=== PATIENT | male | born 2000 | race Caucasian/White ===

== ENCOUNTER 2021-04-27 23:41 | Emergency (ER) | payer OTHER, SELFPAY ==
[2021-04-27 23:51] VITALS: BP 123/72; PULSE 55; RESP 20; TEMP 36.6; O2SAT 96
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
--- NOTE | 2021-04-28 00:07 | ECG_ITS ---
Measurements Intervals [place] Rate: 51 P: 63 DE: 150 QRS: 60 QRSD: 89 T: 28 QT: 395 QTc: 367 Interpretive Statements SINUS BRADYCARDIA POSSIBLE LEFT ATRIAL ENLARGEMENT INCOMPLETE RIGHT BUNDLE BRANCH BLOCK BASELINE WANDER- II, III, V3-V6 BORDERLINE ECG Electronically Signed On 04-28-2021 7:04:35 CDT by Jesus Rodas D.O.
[2021-04-28 00:24] LABS: Add Urine Microscopic? YES; Appearance Urine Clear (Clear); Bacteria Urine Trace /hpf; Bilirubin Urine Negative (Negative); Blood Urine Negative (Negative); Color Urine Yellow (Yellow); Glucose Urine UA Negative (Negative); Ketones Urine Negative (Negative); Leukocyte Esterase Ur Trace LEU/UL (Negative); Mucus Urine Rare /lpf; Nitrate Urine Negative (Negative); Protein Urine Negative (Negative); RBC Urine 0-2 /hpf (0-2); Specific Grav Ur 1.013 (1.001-1.035); Urobilinogen Urine Negative mg/dL (<2.0)
[2021-04-28 00:25] LABS: Basophils Absolute Auto 0.1 K/mm3 (0.0-0.1); Basophils Percent Auto 0.7 % (0.2-1.2); Eosinophils Absolute Auto 0.2 K/mm3 (0-0.3); Eosinophils Percent Auto 1.8 % (0-4.4); Hematocrit 47.7 % (42.0-52.0); Hemoglobin 15.7 g/dL (14.0-18.0); Immature Granulocyte Absolute 0.02 K/mm3 (0.00-0.031); Immature Granulocyte Percent A 0.2 % (0-0.5); Lymphocytes Absolute Auto 1.34 K/mm3 (0.9-3.2); Lymphocytes Percent Auto 16.2 % (18.3-44.2); Mean Corpuscular HGB Conc 32.9 g/dl (32-36); Mean Corpuscular Hemoglobin 30.1 pg (26-34); Mean Corpuscular Volume 91.6 fl (80-100); Monocytes Absolute Auto 0.5 K/mm3 (0.1-0.6); Monocytes Percent Auto 6.2 % (2.6-8.5); Neutrophils Absolute Auto 6.2 K/mm3 (1.3-6.7); Neutrophils Percent Auto 74.9 % (45.5-73.1); Platelet Count Result 211 k/mm3 (150-375); Red Blood Count 5.21 M/mm3 (4.6-6.20); Red Cell Distribution Width 12.3 % (11.5-14.5); White Blood Count 8.3 K/mm3 (4.5-10.0)
[2021-04-28 00:37] LABS: Alanine Aminotransferase 16 U/L (4-50); Albumin Level 4.4 g/dL (3.7-5.6); Alkaline Phosphatase 73 U/L (58-237); Anion Gap 9 mmol/L (8-16); Aspartate Amino Transferase 30 U/L (17-59); Bilirubin,Total 0.3 mg/dL (0.2-1.3); Blood Urea Nitrogen 12 mg/dL (8-21); Calcium 9.6 mg/dL (8.9-10.7); Carbon Dioxide 27 mmol/L (22-30); Chloride 104 mmol/L (98-107); Estimated CRCL calculation 121 ml/min; Estimated Glomerular Filt Rate > 60; Glucose 108 mg/dL (75-110); Sodium 140 mmol/L (134-143)
[2021-04-28 00:39] LABS: Ethanol < 10 mg/dL (<10)
[2021-04-28 00:46] LABS: Amphetamine Screen Urine Negative (Negative); Barbiturate Screen Urine Negative (Negative); Benzodiazepines Screen Urine Negative (Negative); Cannabinoid Screen Urine Positive (Negative); Cocaine Screen Urine Negative (Negative); Methadone Screen Urine Negative (Negative); Opiate Screen Urine Negative (Negative); Phencyclidine Screen Urine Negative (Negative)
[2021-04-28 01:10] LABS: EDCOVIDSCREEN Negative (Negative)
--- NOTE | 2021-04-28 01:25 | PC.NURSE ---
Patient medically cleared by ERP, okay to contact crisis for evaluation.
--- NOTE | 2021-04-28 01:28 | PC.NURSE ---
Spoke with Anne from crisis, she stated she will send someone out to evaluate the patient.
--- NOTE | 2021-04-28 02:16 | PC.NURSE ---
Contacted [facility], spoke with Shonda. Patient denied due to private insurance.
[2021-04-28] MEDS: LORazepam (*CRX) 1 MG TABLET 2 MG PO (03:08)
--- NOTE | 2021-04-28 06:11 | PC.NURSE ---
Per Faheem @ [facility] - [facility]. [facility] is accepting patient, will call with bed number once petition and face sheet are faxed to their facility.
[2021-04-28 08:15] VITALS: BP 126/62; PULSE 88; RESP 18; TEMP 36.7; O2SAT 100
--- NOTE | 2021-04-28 09:31 | PC.NURSE ---
EMS called for transfer. ETA ~1 hour
--- NOTE | 2021-04-28 09:37 | PC.NURSE ---
made contact with [facility] to transfer pt to [facility].company stated arrival will be with in the hour
--- NOTE | 2021-04-28 10:13 | PC.NURSE ---
Lisa has arrived and is aware that pt is going to [facility]
[2021-04-28 10:18] VITALS: BP 128/64; PULSE 78; RESP 18; O2SAT 100
== END 2021-04-28 10:20 ==
PROVIDERS: Emergency Medicine; Emergency Provider Emergency Medicine; PCP Pediatrics
DX: S10.91XA Abrasion of unspecified part of neck, initial encounter (principal); S00.83XA Contusion of other part of head, initial encounter; F32.9 Major depressive disorder, single episode, unspecified; Z20.822 Contact with and (suspected) exposure to COVID-19; X78.8XXA Intentional self-harm by other sharp object, initial encounter; X83.8XXA Intentional self-harm by other specified means, initial encounter; R00.1 Bradycardia, unspecified; I45.10 Unspecified right bundle-branch block; R94.31 Abnormal electrocardiogram [ECG] [EKG]
CPT/HCPCS: 36415; 80053; 80307; 81001; 84443; 85025; 87086; 87426; 93005; 99285; A9270; C9803

== ENCOUNTER 2022-02-19 14:42 | Outpatient (CLI) | payer OTHER, SELFPAY ==
--- NOTE | ~2022-02-19 | XR_ITS ---
EXAMINATION: XR abdomen/kub 1V INDICATION: Prostatitis TECHNIQUE: Supine views of the abdomen were obtained on 2 radiographs. COMPARISON: None FINDINGS: The bowel gas pattern is normal. There are no dilated loops of bowel. The visualized lung b ases are clear. The osseous structures are unremarkable. IMPRESSION: 1. Nonspecific bowel gas pattern. Reviewed, dictated and finalized at location F.
--- NOTE | ~2022-02-19 | US_ITS ---
EXAMINATION: US retroperitoneal comp DATE: 02/19/2022 15:01 INDICATION: Prostatitis TECHNIQUE: Multiple ultrasound grayscale images of the kidneys were obtained. COMPARISON: None. FINDINGS: The right kidney measures 10.1 x 5.6 x 5.7 cm. The left kidney measures 10.5 x 4.9 x 5.8 cm. The kidn eys demonstrate normal echogenicity. There is no hydronephrosis in either kidney. No stones identifi ed. The bladder is normal. IMPRESSION: 1. Normal kidneys without hydronephrosis. Reviewed, dictated and finalized at location A.
== END 2022-02-19 14:43 ==
PROVIDERS: PCP Nurse Practitioner Adult Health; Visit Provider Nurse Practitioner Adult Health
DX: N41.0 Acute prostatitis (principal)
CPT/HCPCS: 74018; 76770

== ENCOUNTER → 2022-03-10 12:46 | Outpatient (CLI) | payer OTHER, SELFPAY ==
--- NOTE | ~2022-03-10 | CT_ITS ---
EXAMINATION: CT abdomen pelvis wo/w con DATE: 03/10/2022 13:06 INDICATION: Acute recurrent urinary tract infections. Prostatitis. TECHNIQUE: Computed tomography (CT) of the abdomen and pelvis was performed without and subsequently with 100 CC Omnipaque 300 intravenous contrast. Automated exposure control and iterative reconstructi on technique were employed. Exam dose: 778.72 mGy-cm total exam DLP. COMPARISON: 02/19/2022 KUB FINDINGS: The lung bases are clear. Normal heart size. No pericardial or pleural effusion. The liver, spleen, pancreas and adrenal glands are unremarkable. The gallbladder is present. No bile duct or pancreatic duct dilatation. Normal morphology of the adrenal glands. No renal mass lesion. There is a subtle pinpoint nonobstructing left renal calculus (series 2 image 36). No other urinary tract calculus or hydroureteronephrosis is noted. The urinary bladder and prostate g land and seminal vesicles are unremarkable. Normal caliber of the abdominal aorta. No intraperitoneal or retroperitoneal or pelvic mass lesion or adenopathy or ascites. No bowel obstruction, bowel wall thickening, pneumatosis or intraperitoneal free air is detected. Included skeletal structures are unremarkable. IMPRESSION: Subtle pinpoint nonobstructing left renal calculus is suggested; otherwise negative exam ination Reviewed, dictated and finalized at Location A. Reviewed, dictated and finalized at location B. IMPRESSION: Subtle pinpoint nonobstructing left renal calculus is suggested; o therwise negative examination
== END ==
PROVIDERS: PCP Nurse Practitioner Adult Health; Visit Provider Nurse Practitioner Adult Health
DX: N41.0 Acute prostatitis (principal)
CPT/HCPCS: 74178; Q9967

== ENCOUNTER 2023-08-30 00:45 | Day surgery (SDC) | payer OTHER, SELFPAY ==
[2023-08-18 13:19] VITALS: BMI 23.8
[2023-08-30 09:10] VITALS: BP 143/80; PULSE 83; RESP 18; TEMP 36.5; O2SAT 100
[2023-08-30] MEDS: LACTATED RINGERS 1,000 ML 150 ML IV CONT (09:20)
--- NOTE | 2023-08-30 09:32 | PM.HPGS ---
History of Present Illness History of Present Illness Consent: Risks, benefits, and alternatives have been discussed and questions answered. Patient agrees to proceed with procedure. Chief complaint: constipation Narrative: Maddison Molina is a 22 year old male with ibs/constipation using miralax prn, never had colonoscopy Review of Systems Constitutional: Constitutional: Denies headache(s) and Denies weakness Eyes: Eyes: Denies blurry vision ENT: Reports Normal hearing present, Denies headache(s) and Denies neck pain Cardiovascular: Cardiovascular: Denies chest pain and Denies dyspnea Respiratory: Respiratory: Denies dyspnea Gastrointestinal: Gastrointestinal: Reports no additional gastrointestinal complaints Genitourinary: Genitourinary: Denies dysuria Musculoskeletal: Musculoskeletal: Denies neck pain Integumentary/Breasts: Skin/Breast: Denies dry skin Neurologic: Reports Normal hearing present, Denies headache(s) and Denies weakness Psychiatric: Psychiatric: Denies anxiety Endocrine: Endocrine: Denies change in body appearance Hematologic/Lymphatic: Hematologic/Lymphatic: Denies easy bleeding Allergic/Immunologic: Allergic/Immunologic: Denies urticaria PMFSH Past Medical History Medical History (Updated 08/30/23 @ 09:33 by Jayro Frank MD) Allergies Anxiety Depression History of bleeding ulcers Irritable bowel syndrome with constipation Family History Family History Father Hypertension Heart disease Cerebrovascular accident Alcohol abuse Sibling Asthma Depression Grandparent Depression Alcohol abuse Social History Social History Smoking status: Former smoker Tobacco type: e-cigarettes/vaping Second hand tobacco smoke exposure: No Alcohol intake: current Drinks per week: 10 Substance use: current Substance use type: marijuana Last use: 08/17/23 Living arrangements: with family Gender identity (if verbalized by the patient): Male Sexual Orientation (if Verbalized by the Patient): Straight or Heterosexual Spiritual care concerns: No Meds Home Medications and Allergies Home Medications Medication Instructions Recorded Confirmed Type cariprazine 3 mg capsule (Vraylar) 3 mg PO DAILY 08/18/23 08/18/23 History Allergies Allergy/AdvReac Type Severity Reaction Status Date / Time strawberry Allergy Unknown Other Verified 08/30/23 09:09 SEASONAL ALLERGENS AdvReac Unknown RUNNY NOSE Uncoded 08/30/23 09:09 Vital Signs Vital Signs - 24 hr 08/30/23 09:10 Temperature 97.7 F Pulse Rate 83 Respiratory Rate 18 Blood Pressure 143/80 H Pulse Oximetry 100 Oxygen Delivery Room Air Exam Const: General: comfortable and no acute distress HENMT: Face/Nose/Sinus: Normal nares present Eyes: General: appearance normal, both eyes and all related structures Neck: Neck: no JVD Resp: Auscultation: clear to auscultation bilaterally Cardio: Rate: regular rate Rhythm: regular rhythm GI: Inspection: non-distended GI Palp: Yes Soft to palpation Skin: General skin exam: normal color Neuro: General: gait normal Speech: normal speech Extrem: General: normal to inspection Psych: Mental Status: mental status grossly normal Assessment and Plan Assessment and plan (1) Irritable bowel syndrome with constipation: Code(s): K58.1 - Irritable bowel syndrome with constipation Status: Acute Assessment and Plan: colonoscopy
[2023-08-30 09:48] VITALS: BP 119/72; PULSE 58; RESP 19; O2SAT 97
[2023-08-30 09:58] VITALS: BP 120/81; PULSE 68; RESP 23; O2SAT 99
[2023-08-30 10:08] VITALS: BP 117/77; PULSE 62; RESP 15; O2SAT 100
== END 2023-08-30 10:19 | disposition home or self-care (01) ==
PROVIDERS: PCP Physician Assistant; Visit Provider Internal Medicine Gastroenterology
PROC: 0DJD8ZZ Inspection of Lower Intestinal Tract, Via Natural or Artificial Opening Endoscopic (ICD-10-PCS; CPT 45378; principal; 2023-08-30 10:30)
DX: K58.1 Irritable bowel syndrome with constipation (principal); F41.9 Anxiety disorder, unspecified; F32.A Depression, unspecified; F17.290 Nicotine dependence, other tobacco product, uncomplicated; F12.90 Cannabis use, unspecified, uncomplicated; Z82.49 Family history of ischemic heart disease and other diseases of the circulatory system
CPT/HCPCS: 45378; J2704; J7120